=== PATIENT | female | born 1940 | race Caucasian/White ===

== ENCOUNTER → 2020-12-06 | Outpatient (CLI) | payer MEDICARE, MEDICAID | END | disposition home or self-care (01) | LOC: CVU 07:05 | PROVIDERS: ATTEND Internal Medicine Cardiovascular Disease | DX: I08.0 Rheumatic disorders of both mitral and aortic valves (principal); I10 Essential (primary) hypertension | CPT/HCPCS: 78452; 93017; 93306; 93356; A9502 ==